=== PATIENT | male | born 1965 | race African-American/Black ===

== ENCOUNTER 2017-01-14 03:20 | Emergency (ER) | payer BC ==
[2017-01-14 04:30] LABS: BASOPHILS 1.1 %; BASOPHILS ABSOLUTE 0.05 10/3/uL (0.0-0.16); EOSINOPHILS 2.6 %; EOSINOPHILS ABSOLUTE 0.12 10/3/uL (0.0-0.53); ER CBC TAT 0 Hrs 07 Mins; HEMATOCRIT 41.4 % (40.0-51.0); HEMOGLOBIN 14.3 g/dL (13.6-17.8); IMMATURE GRANULOCYTES 0.2 %; IMMATURE GRANULOCYTES ABSOLUTE 0.01 10/3/uL (0.0-0.11); LYMPHOCYTES 48.5 %; MANUAL DIFF NO %; MEAN CORPUS HGB CONC 34.5 g/dL (32.0-36.0); MEAN PLATELET VOLUME 11.4 fL (9.2-13.0); MONOCYTES 7.7 %; MONOCYTES ABSOLUTE 0.35 10/3/uL (0.21-1.20); NEUTROPHILS 39.9 %; NEUTROPHILS ABSOLUTE 1.81 10/3/uL (2.02-8.40); PLATELET COUNT 275 10/3/uL (150-400); RBC DISTRIBUTION WIDTH 14.4 % (12.0-16.0); RED CELL COUNT 5.11 10/6/uL (4.7-6.1); WHITE BLOOD CELLS 4.5 10/3/uL (4.5-10.5)
[2017-01-14 04:49] LABS: ALBUMIN 3.6 G/DL (3.5-5.0); ALKALINE PHOSPHATASE 73 U/L (45-117); CALCIUM, SERUM 8.4 MG/DL (8.5-10.4); CHLORIDE, SERUM 106 MMOL/L (96-112); CO2 (CARBON DIOXIDE) 24 MMOL/L (24-34); GFR AFRICAN AMERICAN 56 ML/MIN (>=60); GFR NON AFRICAN AMERICAN 48 ML/MIN (>=60); SODIUM, SERUM 139 MMOL/L (135-148); TOTAL BILIRUBIN 0.5 MG/DL (0-1.2)
[2017-01-14 04:50] LABS: POTASSIUM, SERUM 3.8 MMOL/L (3.5-5.3)
[2017-01-14 04:51] LABS: A/G RATIO 0.9 (0.7-1.9); BUN (BLOOD UREA NITROGEN) 14 MG/DL (6-23); GLUCOSE, SERUM 122 MG/DL (60-99); SGOT(AST) 71 U/L (5-40); SGPT(ALT) 82 U/L (5-65); TOTAL PROTEIN 7.6 G/DL (6.0-8.5)
[2017-01-14 05:16] LABS: SED RATE 8 MM/HR (0-15)
[2017-01-14] MEDS ORDERED: ZANTAC 150 PO (14:20)
[2017-01-14] MEDS ORDERED: BENICAR40 PO (14:21)
[2017-01-14] MEDS ORDERED: SINGULAIR1 PO (14:21)
[2017-01-14] MEDS ORDERED: FIORINALC PO (14:22)
[2017-01-14] MEDS ORDERED: ACET500CAP PO (14:23)
[2017-01-14] MEDS ORDERED: VISINE TEARS15 ML OPH (14:24)
[2017-01-14] MEDS ORDERED: NASACORTAQ NAS (14:24)
== END 2017-01-14 06:36 | disposition home or self-care (01) ==
LOC: ER 03:20
PROVIDERS: Nurse Practitioner
DX: I10 Essential (primary) hypertension (principal); F17.200 Nicotine dependence, unspecified, uncomplicated; K21.9 Gastro-esophageal reflux disease without esophagitis
CPT/HCPCS: 70450; 80053; 85025; 85652; 96374; 96375; 99284; J1170; J1200; J1885; J2550; J2765

== ENCOUNTER 2017-01-14 12:58 | Observation (INO) | payer BC ==
[~2017-01-14] VITALS: Ht 185.4 cm; Wt 99.8 kg
--- NOTE | ~2017-01-14 | HP ---
History And Physical [id number] [place]. [address] NAME: FRANCESCO MILTON : 61 STATUS : ADM Mauricio PAT#: [id number] AGE: 51 ADM/REG DATE : 01/14/17 MR#: [id number] REPORT SERV DATE: 01/15/17 DICTATED BY: NATI JIMENEZ DATE: 01/14/17 REPORT STATUS : Draft TRANSCRIBED BY: MODL DATE: 01/14/17 DATE OF ADMISSION: 01/14/2017 CHIEF COMPLAINT: Headache. HISTORY OF PRESENT ILLNESS: A 51-year-old black male came to the ER complaining of a headache. He was found to have markedly elevated blood pressure. Apparently, he has had headaches off and on for the past several weeks. He has been under a lot of stress at work. He does drink at least two beers daily. His headache did improve and blood pressure did improve with treatment today, thus he was sent home. He returned today with recurrence of his headache, thus his primary care physician has requested that we admit the patient for observation overnight and do a renal artery ultrasound. Headache as described is all over his head. The patient was given Fioricet by his primary care physician to help treat this headache. PAST MEDICAL HISTORY: Hypertension. PAST SURGICAL HISTORY: None. SOCIAL HISTORY: He smokes half pack per day. Drinks at least two beers daily. 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 Is . He is a full code. FAMILY HISTORY: Mom is still living with hypertension. Dad of throat cancer. ALLERGIES: THE PATIENT HAS NO KNOWN DRUG ALLERGIES. MEDICATIONS: Medications at home were Bystolic 10 mg daily, Benicar 40 mg daily, Fiorinal two caps b.i.d. as needed, Visine as needed, Singulair 10 mg daily, Zantac 150 mg b.i.d., and Nasacort spray as needed. REVIEW OF SYSTEMS: CONSTITUTIONAL: No fever, sweats, or rigors. HEENT: EYES: He has had no blurred or double vision, vision loss or glaucoma. He has had headaches as above. No hearing loss or tinnitus. CARDIOVASCULAR: No chest pain, palpitations, or syncope. RESPIRATORY: No cough, wheezing, or pleuritic pain. GASTROINTESTINAL: No nausea, vomiting, hematemesis, or abdominal pain. MUSCULOSKELETAL: No arthralgia or arthritis. INTEGUMENT: No rash or suspicious skin lesions. NEUROLOGIC: No memory loss, gait disturbance, or weakness. HEMATOLOGIC: No anemia, iron deficiency, or B12 deficiency. PSYCHIATRIC: No depression, bipolar, or anxiety. : No dysuria, hematuria, or nephrolithiasis. ENDOCRINE: No known diabetes or thyroid disease. Cholesterol is unknown. PHYSICAL EXAMINATION: History And Physical [address] [address] NAME: FRANCESCO MILTON : 61 STATUS : ADM Mauricio PAT#: [id number] AGE: 51 ADM/REG DATE : 01/14/17 MR#: [id number] REPORT SERV DATE: 01/15/17 DICTATED BY: NATI JIMENEZ DATE: 01/14/17 REPORT STATUS : Draft TRANSCRIBED BY: JENNIFER DATE: 01/14/17 VITAL SIGNS: Blood pressure on admission here was 237/123, pulse 60, respirations 19, and O2 saturation 99% on room air. CONSTITUTIONAL: Alert and appropriate. PSYCHIATRIC: Oriented x3. Memory intact. Affect appropriate. HEENT: Atraumatic and normocephalic. Oral palate without lesion. Eyes, pupils were reactive and anicteric. NECK: No adenopathy. Supple. No thyromegaly or masses. RESPIRATORY: Clear to percussion and auscultation. CARDIOVASCULAR: Regular rate and rhythm. Does have an S4. He had no carotid or femoral bruits. Distal pulse intact. ABDOMEN: Soft and nontender. No masses. SKIN: No rash or suspicious lesions. NEUROLOGIC: The patient did move all four extremities. Cranial nerves II through XII intact. Sensation was intact. No tremor or drift. LYMPHATIC: No adenopathy in the neck, axilla, or femoral region. MUSCULOSKELETAL: Range of motion intact in upper and lower extremities. LABORATORY DATA: Head CT this a.m., by report, was unremarkable. Sodium 141, potassium 4, BUN 14, creatinine 1.61, 87, hemoglobin 14.1, white count 3.9, and platelet 266. EKG, sinus bradycardia, no acute changes. IMPRESSION/PLAN: 1. Hypertensive urgency. We will control blood pressure. We will obtain a renal artery ultrasound as requested by primary care physician. 2. Headache. Hopefully, this will improve with control of blood pressure. We will also obtain an echocardiogram. 3. Suspect stage III chronic kidney disease from poorly controlled hypertension. 4. Also suspect alcohol abuse. 5. Tobacco abuse, cessation advised. ELVA/MODL Nati Jimenez MD / [id number] CC: MD Markus Ocampo M.D.
--- NOTE | ~2017-01-14 | DS ---
Discharge Summary [facility] [address] [place]. [address] NAME: FRANCESCO MILTON : 61 STATUS : DIS Mauricio PAT#: [id number] AGE: 51 ADM/REG DATE : 01/14/17 MR#: [id number] REPORT SERV DATE: 01/16/17 DICTATED BY: GALINDO WARREN DATE: 01/16/17 REPORT STATUS : Draft TRANSCRIBED BY: MODL DATE: 01/16/17 ADMISSION DATE: 01/14/2017 DISCHARGE DATE: 01/16/2017 DISCHARGE DIAGNOSES: 1. Malignant hypertension. 2. Headaches. 3. Probable alcohol abuse. 4. Smoking. 5. Chronic kidney disease, stage III. 6. Stage II diastolic congestive heart failure. CONSULTANTS: None. PROCEDURES: None. HOSPITAL COURSE: This is a 51-year-old gentleman who was admitted to the hospital with hypertensive urgency. For details, please refer to excellent H and P dictated by Dr. Nati Ma. In summary, the patient was admitted for aggressive blood pressure control. The patient's blood pressure on admission was as high as 230/90s. Unfortunately, the patient's blood pressure was not well controlled even on the second day of the hospital stay, and he required additional hospital day for more aggressive blood pressure control. The patient was worked up for secondary hypertension with an echocardiogram that just showed a stage II diastolic hypertension which is understandable given his long-standing hypertension. The patient was also evaluated with renal ultrasound, which showed high velocity renal blood flow, but that was still within normal limits. The patient did complain of severe headache that was located to his left side of his forehead with some vision changes followed by nausea and vomiting, and thus, we even went ahead and checked an MRI of the brain as well as an erythrocyte sedimentation rate, which were both normal. The patient also had a normal TSH. By the third day of the hospital stay, with multiple antihypertensive agents, the patient's blood pressure was much better controlled and the patient was reporting alleviation of his symptoms. Also, during my encounters with the patient, it was evident that the patient may have some underlying anxiety that may be attributing to his high blood pressure. In any case, the patient is now being discharged to home with multiple new antihypertensive regimen with very close outpatient followup instructions. DISPOSITION: To home. DISCHARGE MEDICATIONS: 1. Bystolic 10 mg p.o. daily. 2. Hydralazine 50 mg p.o. three times daily. 3. Ultram 25 mg p.o. q.6 hours p.r.n. 4. Norvasc 10 mg p.o. daily. 5. Hydrochlorothiazide 25 mg p.o. daily. 6. Otherwise, no medication changes, the patient will be continued on Benicar 40 mg p.o. q.a.m. as he has been previously. Discharge Summary [address] [address] NAME: FRANCESCO MILTON : 61 STATUS : DIS Mauricio PAT#: [id number] AGE: 51 ADM/REG DATE : 01/14/17 MR#: [id number] REPORT SERV DATE: 01/16/17 DICTATED BY: GALINDO WARREN DATE: 01/16/17 REPORT STATUS : Draft TRANSCRIBED BY: JENNIFER DATE: 01/16/17 FOLLOWUP: 1. Please follow up with PCP in the next one to two weeks. 2. The patient is to have electrolytes checked in one week. Total of 35 minutes spent in coordinating this patient's discharge today. Ewelina/JENNIFER Galindo Warren MD / [id number] CC: MD Markus Ocampo M.D.
[2017-01-14] MEDS ORDERED: ZANTAC 150 PO (14:20)
[2017-01-14] MEDS ORDERED: BENICAR40 PO (14:21)
[2017-01-14] MEDS ORDERED: SINGULAIR1 PO (14:21)
[2017-01-14] MEDS ORDERED: FIORINALC PO (14:22)
[2017-01-14] MEDS ORDERED: ACET500CAP PO (14:23)
[2017-01-14] MEDS ORDERED: NASACORTAQ NAS (14:24)
[2017-01-14] MEDS ORDERED: VISINE TEARS15 ML OPH (14:24)
[2017-01-14 15:06] LABS: BASOPHILS 0.8 %; BASOPHILS ABSOLUTE 0.03 10/3/uL (0.0-0.16); EOSINOPHILS 2.3 %; EOSINOPHILS ABSOLUTE 0.09 10/3/uL (0.0-0.53); ER CBC TAT 0 Hrs 05 Mins; HEMATOCRIT 41.9 % (40.0-51.0); HEMOGLOBIN 14.1 g/dL (13.6-17.8); LYMPHOCYTES 39.4 %; LYMPHOCYTES ABSOLUTE 1.55 10/3/uL (0.67-4.30); MEAN CORPUS HGB CONC 33.7 g/dL (32.0-36.0); MEAN CORPUSCULAR HEMOGLOB 27.2 pg (26.0-34.0); MEAN CORPUSCULAR VOLUME 80.9 fL (80-100); MEAN PLATELET VOLUME 10.4 fL (9.2-13.0); MONOCYTES 8.9 %; MONOCYTES ABSOLUTE 0.35 10/3/uL (0.21-1.20); NEUTROPHILS 48.6 %; NEUTROPHILS ABSOLUTE 1.91 10/3/uL (2.02-8.40); PLATELET COUNT 266 10/3/uL (150-400); RBC DISTRIBUTION WIDTH 14.2 % (12.0-16.0); RED CELL COUNT 5.18 10/6/uL (4.7-6.1); WHITE BLOOD CELLS 3.9 10/3/uL (4.5-10.5)
[2017-01-14 15:08] LABS: MANUAL DIFF NO %
[2017-01-14 15:17] LABS: INTERNATIONAL NORMAL RATI 0.9 UNITS (-); PARTIAL THROMBO TIME 36.4 SEC (22.5-37.2); PROTIME (NOT ORD) 12.3 SEC (12.0-14.5)
[2017-01-14 15:23] LABS: BUN (BLOOD UREA NITROGEN) 14 MG/DL (6-23); CALCIUM, SERUM 9.2 MG/DL (8.5-10.4); CHEST PAIN PROFILE TAT 0 Hrs 22 Mins; CHLORIDE, SERUM 109 MMOL/L (96-112); CO2 (CARBON DIOXIDE) 24 MMOL/L (24-34); CREATININE 1.61 MG/DL (0.70-1.30); GFR AFRICAN AMERICAN 56 ML/MIN (>=60); GFR NON AFRICAN AMERICAN 48 ML/MIN (>=60); SODIUM, SERUM 141 MMOL/L (135-148); TROPONIN I <0.02 NG/ML (<0.05)
[2017-01-14 15:25] LABS: GLUCOSE, SERUM 87 MG/DL (60-99)
[2017-01-14 21:36] LABS: ALCOHOL < 10 MG/DL (0)
[2017-01-15 05:24] LABS: BASOPHILS 0.2 %; BASOPHILS ABSOLUTE 0.01 10/3/uL (0.0-0.16); EOSINOPHILS 0.3 %; EOSINOPHILS ABSOLUTE 0.02 10/3/uL (0.0-0.53); HEMATOCRIT 40.7 % (40.0-51.0); HEMOGLOBIN 13.5 g/dL (13.6-17.8); IMMATURE GRANULOCYTES 0.2 %; IMMATURE GRANULOCYTES ABSOLUTE 0.01 10/3/uL (0.0-0.11); LYMPHOCYTES ABSOLUTE 1.35 10/3/uL (0.67-4.30); MEAN CORPUS HGB CONC 33.2 g/dL (32.0-36.0); MEAN CORPUSCULAR HEMOGLOB 26.4 pg (26.0-34.0); MEAN CORPUSCULAR VOLUME 79.5 fL (80-100); MEAN PLATELET VOLUME 10.8 fL (9.2-13.0); MONOCYTES 5.2 %; MONOCYTES ABSOLUTE 0.32 10/3/uL (0.21-1.20); NEUTROPHILS 72.1 %; NEUTROPHILS ABSOLUTE 4.42 10/3/uL (2.02-8.40); PLATELET COUNT 262 10/3/uL (150-400); RBC DISTRIBUTION WIDTH 14.5 % (12.0-16.0); RED CELL COUNT 5.12 10/6/uL (4.7-6.1)
[2017-01-15 05:26] LABS: MANUAL DIFF NO %; WHITE BLOOD CELLS 6.1 10/3/uL (4.5-10.5)
[2017-01-15 05:29] LABS: A/G RATIO 0.9 (0.7-1.9); ALBUMIN 3.5 G/DL (3.5-5.0); ALKALINE PHOSPHATASE 67 U/L (45-117); BUN (BLOOD UREA NITROGEN) 13 MG/DL (6-23); CALCIUM, SERUM 8.8 MG/DL (8.5-10.4); CHLORIDE, SERUM 105 MMOL/L (96-112); CHOL/HDL RATIO(NOT ORDER) 5.3 (0-5); CHOLESTEROL 192 MG/DL (< 200); CO2 (CARBON DIOXIDE) 23 MMOL/L (24-34); CREATININE 1.52 MG/DL (0.70-1.30); GFR AFRICAN AMERICAN 60 ML/MIN (>=60); GFR NON AFRICAN AMERICAN 52 ML/MIN (>=60); GLOBULIN 3.7 G/DL (2.5-4.1); HDL CHOLESTEROL 36 MG/DL (> 39); LDL CHOLESTEROL 121 MG/DL (< 130); NON-HDL CHOLESTEROL 156 MG/DL (< 160); POTASSIUM, SERUM 3.7 MMOL/L (3.5-5.3); SGOT(AST) 29 U/L (5-40); SGPT(ALT) 62 U/L (5-65); SODIUM, SERUM 137 MMOL/L (135-148); TOTAL BILIRUBIN 0.8 MG/DL (0-1.2); TOTAL PROTEIN 7.2 G/DL (6.0-8.5); TRIGLYCERIDE 177 MG/DL (< 150)
[2017-01-15 05:30] LABS: GLUCOSE, SERUM 117 MG/DL (60-99)
[2017-01-15 05:30] LABS: ASCORBIC ACID (UR NOT ORDER) NEG (NEG); BILIRUBIN, URINE NEGATIVE (NEG); KETONE, URINE NEGATIVE (NEG); LEUKOCYTE ESTERASE(NOT OR NEG (NEG); WBC (NOT ORDERED) (RFLEX) < 1 (0-5)
[2017-01-16 07:01] LABS: BUN (BLOOD UREA NITROGEN) 14 MG/DL (6-23); CO2 (CARBON DIOXIDE) 23 MMOL/L (24-34); CREATININE 1.61 MG/DL (0.70-1.30); GFR AFRICAN AMERICAN 56 ML/MIN (>=60); GFR NON AFRICAN AMERICAN 48 ML/MIN (>=60); GLUCOSE, SERUM 130 MG/DL (60-99); POTASSIUM, SERUM 3.7 MMOL/L (3.5-5.3)
[2017-01-16 07:02] LABS: CALCIUM, SERUM 9.8 MG/DL (8.5-10.4); CHLORIDE, SERUM 92 MMOL/L (96-112); SODIUM, SERUM 129 MMOL/L (135-148)
[2017-01-16 07:10] LABS: C-REACTIVE PROTEIN <2.9 MG/L (<8.0)
[2017-01-16] MEDS ORDERED: HYDROCHLOROT25 MG (10:10)
[2017-01-16] MEDS ORDERED: BYSTOLIC10 MG PO (10:11)
[2017-01-16] MEDS ORDERED: APRES50 (10:12)
[2017-01-16] MEDS ORDERED: ULTRAM50 PO (10:13)
[2017-01-16] MEDS ORDERED: NORV10 PO (10:23)
== END 2017-01-16 13:09 | disposition home or self-care (01) ==
LOC: ER 12:58 → 6NO 20:15
PROVIDERS: Internal Medicine; Nurse Practitioner Acute Care
DX: I16.0 Hypertensive urgency (principal); R51 Headache; F17.210 Nicotine dependence, cigarettes, uncomplicated; I13.0 Hypertensive heart and chronic kidney disease with heart failure and stage 1 through stage 4 chronic kidney disease, or unspecified chronic kidney disease; N18.3 Chronic kidney disease, stage 3 (moderate); I50.30 Unspecified diastolic (congestive) heart failure; Z79.899 Other long term (current) drug therapy
CPT/HCPCS: 70551; 71010; 80048; 80053; 80061; 81001; 83735; 84443; 84484; 85025; 85610; 85652; 85730; 86140; 93005; 93306; 93975; 96372; 96374; 96375; 96376; 99285; A9270-GY; G0378; G0480; J0360; J1170; J2405